=== PATIENT | male | born 1935 | race African-American/Black ===

== ENCOUNTER 2016-10-30 18:45 | Inpatient (IN) | payer MEDICARE ==
[~2016-10-30] VITALS: Ht 175.3 cm; Wt 92.1 kg
[2016-10-30] MEDS ORDERED: SODIUM CHLORIDE 0.9% 1,000 ML IV ONE (21:33)
[2016-10-30] MEDS ORDERED: ACETAMINOPHEN 325MG TABLET PO STA (21:33)
[2016-10-30] MEDS ORDERED: SODIUM CHLORIDE 0.9% 1000ML BAG (SEPSIS BOLUS) IV ONE (21:45)
[2016-10-30] MEDS ORDERED: PIPERACILLIN/TAZ 3.375G PREMIX 50 ML IV ONE (21:45)
[2016-10-30] MEDS ORDERED: VANCOMYCIN 1 G PREMIX 200 ML IV ONE (21:45)
[2016-10-30 21:58] LABS: HEMATOCRIT. 43.7 % (42.0-52.0); HEMOGLOBIN. 14.3 g/dL (14.0-18.0); MEAN CORPUSCULAR HEMOGLOBIN 26.8 pg (28.0-32.0); MEAN CORPUSCULAR VOLUME 81.9 fL (80.0-94.0); MEAN PLATELET VOLUME 8.4 fl (7.4-10.4); PLATELET 225 x1000/uL (130-400); RED BLOOD CELL COUNT 5.34 mill/uL (4.7-6.1); RED CELL DISTRIBUTION WIDTH 15.9 % (11.6-14.6)
[2016-10-30 22:06] LABS: INR 1.1; PROTHROMBIN TIME 11.8 sec (9.4-11.6)
[2016-10-30 22:08] LABS: CHLORIDE 109 mEq/L (98-107)
[2016-10-30 22:11] LABS: CARBON DIOXIDE 26 mEq/L (21-32); ETHANOL BLOOD < 10 mg/dL
[2016-10-30 22:16] LABS: CREATINE KINASE 215 IU/L (39-308); TROPONIN I < 0.02 ng/mL (0.00-0.04)
[2016-10-30 22:19] LABS: PLATELET ESTIMATE NORMAL
[2016-10-31] MEDS ORDERED: SODIUM CHLORIDE 0.9% 1,000 ML IV ONE (00:39)
[2016-10-31] MEDS ORDERED: POTASSIUM CHLORIDE 20MEQ TABLET SR PO ONE (00:45)
[2016-10-31 03:35] LABS: CLARITY URINE CLEAR (CLEAR); COLOR URINE YELLOW (YELLOW); GLUCOSE URINE NEGATIVE (NEGATIVE); KETONES URINE 1+ (NEGATIVE); LEUKOCYTE ESTERASE URINE 2+ (NEGATIVE); NITRITE URINE POSITIVE (NEGATIVE); OCCULT BLOOD URINE 2+ (NEGATIVE); PH URINE 6.5 (4.5-8.0); PROTEIN URINE 2+ (NEGATIVE); SPECIFIC GRAVITY URINE 1.012 (1.005-1.030)
[2016-10-31 03:47] VITALS: BP 143/86
[2016-10-31 04:05] LABS: *AMPHETAMINES SCREEN URINE NEGATIVE (NEGATIVE); *BARBITURATES SCREEN URINE NEGATIVE (NEGATIVE); *BENZODIAZEPINES SCREEN URINE NEGATIVE (NEGATIVE); *COCAINE SCREEN URINE NEGATIVE (NEGATIVE); CANNABINOID URINE SCREEN NEGATIVE (NEGATIVE); METHADONE URINE SCREEN NEGATIVE (NEGATIVE); OPIATES URINE SCREEN NEGATIVE (NEGATIVE); PHENCYCLIDINE URINE SCREEN NEGATIVE (NEGATIVE)
[2016-10-31 04:30] VITALS: BP 143/86
[2016-10-31] MEDS ORDERED: DEXTROSE 50% WATER 50ML SYRINGE IV PRN (05:00)
[2016-10-31] MEDS: INSULIN LISPRO 100 UNITS/ML SUBCUT SCH ×4 (05:56→21:12)
[2016-10-31] MEDS: BLOOD SUGAR DIAGNOSTIC STRIP TEST SCH ×4 (05:56→21:00)
[2016-10-31] MEDS: ENOXAPARIN 30MG/0.3ML SYR SUBCUT SCH ×2 (08:27→21:06)
[2016-10-31 08:31] VITALS: BP 174/76
[2016-10-31] MEDS ORDERED: ENOXAPARIN 40MG/0.4ML SYR SUBCUT SCH (09:00)
[2016-10-31] MEDS: CLONIDINE 0.1MG TABLET PO PRN ×2 (09:59→19:42)
[2016-10-31] MEDS: AMLODIPINE 10MG TABLET PO SCH (09:59)
[2016-10-31 12:00] VITALS: BP 158/73
[2016-10-31 13:50] LABS: CARBON DIOXIDE 26 mEq/L (21-32); CHLORIDE 105 mEq/L (98-107)
[2016-10-31] MEDS ORDERED: POTASSIUM CHLORIDE 20MEQ TABLET SR PO NR (14:30)
[2016-10-31 16:00] VITALS: BP 149/74
[2016-10-31 17:43] LABS: BASOPHILS % 0.5 % (0.0-2.0); EOSINOPHILS % 1.9 % (0.0-5.0); HEMATOCRIT. 41.8 % (42.0-52.0); HEMOGLOBIN. 13.6 g/dL (14.0-18.0); MEAN CORPUSCULAR HEMOGLOBIN 26.6 pg (28.0-32.0); MEAN CORPUSCULAR VOLUME 81.9 fL (80.0-94.0); MEAN PLATELET VOLUME 8.1 fl (7.4-10.4); MONOCYTES % 7.8 % (2.0-8.0); NEUTROPHILS % 80.8 % (40.0-76.0); PLATELET 187 x1000/uL (130-400)
[2016-10-31 18:00] LABS: CARBON DIOXIDE 27 mEq/L (21-32); CHLORIDE 106 mEq/L (98-107)
[2016-10-31] MEDS: SODIUM CHLORIDE 0.45% 1,000 ML IV SCH (18:15)
[2016-10-31] MEDS ORDERED: POTASSIUM CHLORIDE 10MEQ TABLET SR PO NR (19:11)
[2016-10-31 20:00] VITALS: BP 162/83
[2016-10-31] MEDS: CEFTRIAXONE 1 G PREMIX 50 ML IV SCH (20:58)
[2016-11-01] VITALS: BP 149/80
[2016-11-01 04:30] VITALS: BP 148/85
[2016-11-01] MEDS: INSULIN LISPRO 100 UNITS/ML SUBCUT SCH ×4 (06:51→22:17)
[2016-11-01] MEDS: BLOOD SUGAR DIAGNOSTIC STRIP TEST SCH ×4 (06:51→22:10)
[2016-11-01] MEDS: SODIUM CHLORIDE 0.45% 1,000 ML IV SCH ×2 (06:59→22:22)
[2016-11-01] MEDS: AMLODIPINE 10MG TABLET PO SCH (08:35)
[2016-11-01] MEDS: ENOXAPARIN 30MG/0.3ML SYR SUBCUT SCH ×2 (08:38→22:01)
[2016-11-01 12:00] VITALS: BP 160/116
[2016-11-01 16:00] VITALS: BP 139/80
[2016-11-01] MEDS ORDERED: INSU3INS6 SUBCUT (16:31)
[2016-11-01] MEDS ORDERED: LOSA100T14 PO (16:31)
[2016-11-01] MEDS ORDERED: SIMV20TA6 PO (16:31)
[2016-11-01] MEDS ORDERED: VITAMIN D2 PO (16:31)
[2016-11-01] MEDS ORDERED: ATEN50TA PO (16:31)
[2016-11-01] MEDS ORDERED: HUMALOG SUBCUT (16:31)
[2016-11-01] MEDS ORDERED: AMLO10TA80 PO (16:31)
[2016-11-01] MEDS: ATENOLOL 50 MG TABLET PO SCH (17:08)
[2016-11-01 17:43] LABS: VITAMIN B12 SERUM 526 pg/mL (211-911)
[2016-11-01 20:00] VITALS: BP 150/80
[2016-11-01] MEDS: CEFTRIAXONE 1 G PREMIX 50 ML IV SCH (22:00)
[2016-11-01] MEDS: ATORVASTATIN CALCIUM 10MG TABLET PO SCH (22:01)
[2016-11-02] VITALS: BP 135/73
[2016-11-02 04:00] VITALS: BP 169/78
[2016-11-02] MEDS: CLONIDINE 0.1MG TABLET PO PRN (04:36)
[2016-11-02] MEDS: BLOOD SUGAR DIAGNOSTIC STRIP TEST SCH ×4 (06:27→21:04)
[2016-11-02] MEDS: INSULIN LISPRO 100 UNITS/ML SUBCUT SCH ×4 (06:27→21:03)
[2016-11-02 08:00] VITALS: BP 101/68
[2016-11-02] MEDS: ENOXAPARIN 30MG/0.3ML SYR SUBCUT SCH ×2 (08:45→20:51)
[2016-11-02] MEDS: LOSARTAN POTASSIUM 100 MG TABLET PO SCH (08:46)
[2016-11-02] MEDS: AMLODIPINE 10MG TABLET PO SCH (08:47)
[2016-11-02] MEDS: ATENOLOL 50 MG TABLET PO SCH (08:49)
[2016-11-02] MEDS: SODIUM CHLORIDE 0.45% 1,000 ML IV SCH ×2 (08:49→22:36)
[2016-11-02] MEDS ORDERED: ERGOCALCIFEROL 50000UNITS CAPSULE PO SCH (09:00)
[2016-11-02 12:00] VITALS: BP 115/64
[2016-11-02 16:00] VITALS: BP 132/54
[2016-11-02 16:15] LABS: CHLORIDE 102 mEq/L (98-107)
[2016-11-02 16:18] LABS: BASOPHILS % 0.7 % (0.0-2.0); EOSINOPHILS % 3.1 % (0.0-5.0); HEMATOCRIT. 39.4 % (42.0-52.0); HEMOGLOBIN. 12.8 g/dL (14.0-18.0); MEAN CORPUSCULAR HEMOGLOBIN 26.5 pg (28.0-32.0); MEAN CORPUSCULAR VOLUME 81.6 fL (80.0-94.0); MEAN PLATELET VOLUME 7.9 fl (7.4-10.4); MONOCYTES % 8.7 % (2.0-8.0); NEUTROPHILS % 68.5 % (40.0-76.0); PLATELET 219 x1000/uL (130-400); RED BLOOD CELL COUNT 4.83 mill/uL (4.7-6.1); RED CELL DISTRIBUTION WIDTH 15.8 % (11.6-14.6)
[2016-11-02 16:24] LABS: CARBON DIOXIDE 29 mEq/L (21-32)
[2016-11-02] MEDS ORDERED: POTASSIUM CHLORIDE 20MEQ/PACKET PO NR ×2 (18:15→22:15)
[2016-11-02 20:00] VITALS: BP 138/68
[2016-11-02] MEDS: CEFTRIAXONE 1 G PREMIX 50 ML IV SCH (20:51)
[2016-11-02] MEDS: ATORVASTATIN CALCIUM 10MG TABLET PO SCH (20:51)
[2016-11-03] VITALS: BP 148/91
[2016-11-03 04:00] VITALS: BP 162/63
[2016-11-03] MEDS: BLOOD SUGAR DIAGNOSTIC STRIP TEST SCH ×4 (06:52→21:19)
[2016-11-03] MEDS: INSULIN LISPRO 100 UNITS/ML SUBCUT SCH ×4 (06:54→21:28)
[2016-11-03 06:55] LABS: BASOPHILS % 1.1 % (0.0-2.0); EOSINOPHILS % 2.6 % (0.0-5.0); HEMATOCRIT. 42.6 % (42.0-52.0); HEMOGLOBIN. 13.9 g/dL (14.0-18.0); LYMPHOCYTES % 18.2 % (20.0-50.0); MEAN CORPUSCULAR HEMOGLOBIN 26.5 pg (28.0-32.0); MEAN CORPUSCULAR VOLUME 81.5 fL (80.0-94.0); MEAN PLATELET VOLUME 8.4 fl (7.4-10.4); MONOCYTES % 8.5 % (2.0-8.0); NEUTROPHILS % 69.6 % (40.0-76.0); PLATELET 230 x1000/uL (130-400); RED BLOOD CELL COUNT 5.23 mill/uL (4.7-6.1); RED CELL DISTRIBUTION WIDTH 15.8 % (11.6-14.6)
[2016-11-03 07:46] LABS: CARBON DIOXIDE 26 mEq/L (21-32); CHLORIDE 104 mEq/L (98-107)
[2016-11-03 07:59] VITALS: BP 156/66
[2016-11-03] MEDS: ATENOLOL 50 MG TABLET PO SCH (08:53)
[2016-11-03] MEDS: LOSARTAN POTASSIUM 100 MG TABLET PO SCH (08:53)
[2016-11-03] MEDS: ENOXAPARIN 30MG/0.3ML SYR SUBCUT SCH ×2 (08:54→21:20)
[2016-11-03] MEDS: AMLODIPINE 10MG TABLET PO SCH (08:54)
[2016-11-03 11:18] VITALS: BP 146/66
[2016-11-03] MEDS: SODIUM CHLORIDE 0.45% 1,000 ML IV SCH (12:52)
[2016-11-03 16:00] VITALS: BP 141/72
[2016-11-03 20:00] VITALS: BP 150/73
[2016-11-03] MEDS: CEFTRIAXONE 1 G PREMIX 50 ML IV SCH (21:06)
[2016-11-03] MEDS: ATORVASTATIN CALCIUM 10MG TABLET PO SCH (21:20)
[2016-11-04] VITALS: BP 142/74
[2016-11-04 04:00] VITALS: BP 155/79
[2016-11-04] MEDS: SODIUM CHLORIDE 0.45% 1,000 ML IV SCH ×2 (05:12→19:11)
[2016-11-04] MEDS: BLOOD SUGAR DIAGNOSTIC STRIP TEST SCH ×4 (06:10→21:17)
[2016-11-04] MEDS: INSULIN LISPRO 100 UNITS/ML SUBCUT SCH ×4 (06:45→21:31)
[2016-11-04] MEDS: ATENOLOL 50 MG TABLET PO SCH (08:53)
[2016-11-04] MEDS: ENOXAPARIN 30MG/0.3ML SYR SUBCUT SCH ×2 (08:54→21:18)
[2016-11-04] MEDS: AMLODIPINE 10MG TABLET PO SCH (08:54)
[2016-11-04] MEDS: LOSARTAN POTASSIUM 100 MG TABLET PO SCH (08:54)
[2016-11-04 09:07] VITALS: BP 156/78
[2016-11-04 12:25] VITALS: BP 99/66
[2016-11-04 17:04] VITALS: BP 144/77
[2016-11-04 19:36] VITALS: BP 146/75
[2016-11-04] MEDS: ATORVASTATIN CALCIUM 10MG TABLET PO SCH (21:18)
[2016-11-04] MEDS: CEFTRIAXONE 1 G PREMIX 50 ML IV SCH (21:19)
[2016-11-05] VITALS: BP 127/85
[2016-11-05 04:00] VITALS: BP 149/78
[2016-11-05] MEDS: SODIUM CHLORIDE 0.45% 1,000 ML IV SCH (06:44)
[2016-11-05] MEDS: INSULIN LISPRO 100 UNITS/ML SUBCUT SCH ×2 (06:45→12:09)
[2016-11-05] MEDS: BLOOD SUGAR DIAGNOSTIC STRIP TEST SCH ×2 (06:45→12:03)
[2016-11-05 08:00] VITALS: BP 158/77
[2016-11-05] MEDS: AMLODIPINE 10MG TABLET PO SCH (08:50)
[2016-11-05] MEDS: ATENOLOL 50 MG TABLET PO SCH (08:51)
[2016-11-05] MEDS: LOSARTAN POTASSIUM 100 MG TABLET PO SCH (08:51)
[2016-11-05] MEDS: ENOXAPARIN 30MG/0.3ML SYR SUBCUT SCH (08:52)
[2016-11-05 12:00] VITALS: BP 123/72
[2016-11-05 14:01] VITALS: BP 123/72
== END 2016-11-05 14:45 | DRG 871 ==
LOC: EDBD 18:45 → ER 19:10 → 5WST 10-31 00:56 → EDBEDREQ 10-31 01:06 → EDBEDREQSVC 10-31 02:23 → ENRESERV 10-31 02:30 → 5WST 10-31 04:46
PROVIDERS: ADMIT Family Medicine; ATTEND Family Medicine
DX: A41.9 Sepsis, unspecified organism (principal); N17.0 Acute kidney failure with tubular necrosis; E43 Unspecified severe protein-calorie malnutrition; G93.41 Metabolic encephalopathy; N39.0 Urinary tract infection, site not specified; E86.0 Dehydration; E11.22 Type 2 diabetes mellitus with diabetic chronic kidney disease; M48.07 Spinal stenosis, lumbosacral region; W18.30XA Fall on same level, unspecified, initial encounter; N18.9 Chronic kidney disease, unspecified; I12.9 Hypertensive chronic kidney disease with stage 1 through stage 4 chronic kidney disease, or unspecified chronic kidney disease; E87.6 Hypokalemia; M48.02 Spinal stenosis, cervical region; R62.7 Adult failure to thrive; Z79.4 Long term (current) use of insulin; Z79.899 Other long term (current) drug therapy; Z68.30 Body mass index [BMI] 30.0-30.9, adult
CPT/HCPCS: 36415; 70450; 70551; 71010; 72141; 72146; 72148; 80053; 80305; 81001; 82550; 82607; 82962; 83605; 83880; 84132; 84443; 84484; 85025; 85610; 87040; 87086; 93005; 96361; 96365; 96367; 97112; 97116; 97162; 97530; 99285; A6261; G0482; J0696; J1650; J1815; J2543; J3370; J7030